=== PATIENT | male | born 1995 | race Caucasian/White ===

== ENCOUNTER 2022-07-25 10:05 | Emergency (ER) | payer OTHER ==
[~2022-07-25] VITALS: Ht 182.9 cm; Wt 110.0 kg
[2022-07-25] MEDS ORDERED: VALA500T5 (11:43)
[2022-07-25] MEDS ORDERED: IBUP200C25 PO (11:46)
[2022-07-25 13:08] VITALS: BP 141/89
== END 2022-07-25 13:00 | disposition home or self-care (01) ==
LOC: M ED 10:05
DX: S63.8X1A Sprain of other part of right wrist and hand, initial encounter (principal); S60.222A Contusion of left hand, initial encounter; Y92.9 Unspecified place or not applicable; Y93.B3 Activity, free weights; Y99.1 Military activity; Z79.899 Other long term (current) drug therapy

== ENCOUNTER 2024-06-22 09:24 | Emergency (ER) | payer OTHER ==
[~2024-06-22] VITALS: Ht 185.4 cm; Wt 114.3 kg
[~2024-06-22 09:24] MED LIST: IBUP200C25 PO; VALA500T5
[2024-06-22 09:32] VITALS: TEMP 97.7
[2024-06-22 13:03] VITALS: BP 145/80; O2SAT 96
== END 2024-06-22 13:32 | disposition home or self-care (01) ==
LOC: M ED 09:24
DX: S49.91XA Unspecified injury of right shoulder and upper arm, initial encounter (principal); X50.0XXA Overexertion from strenuous movement or load, initial encounter; Z79.1 Long term (current) use of non-steroidal anti-inflammatories (NSAID); Y92.39 Other specified sports and athletic area as the place of occurrence of the external cause; Y93.A1 Activity, exercise machines primarily for cardiorespiratory conditioning; Y99.9 Unspecified external cause status